=== PATIENT | male | born 1965 | race Caucasian/White ===

== ENCOUNTER 2016-12-20 09:50 | Emergency (ER) | payer OTHER, MEDICAID ==
[~2016-12-20] VITALS: Ht 180.3 cm; Wt 96.3 kg
[~2016-12-20 09:50] MED LIST: 1-ME1LIQ PO; CLON.1 PO; LANTUSP SQ; LISI-363 PO; NEUR600T PO; NOVOLOGSS SQ; TRAM50TA PO
[2016-12-20 09:57] VITALS: BP_SYST 223; BP_SYST 229; BP_DIAS 128; BP_DIAS 135; PULSE 111; RESP 16; TEMP 98.6; O2SAT 95
[2016-12-20 10:10] VITALS: BP 218/106; PULSE 112; RESP 16; O2SAT 96
[2016-12-20] MEDS ORDERED: NOVOLOGP2 SQ (10:13)
[2016-12-20] MEDS ORDERED: LANTUS2P SQ (10:13)
[2016-12-20] MEDS ORDERED: LISI-515 PO (10:13)
[2016-12-20] MEDS ORDERED: [UNRECOGNIZED DRUG - OTHER] (10:13)
[2016-12-20] MEDS ORDERED: CLON0.1T PO (10:13)
[2016-12-20] MEDS ORDERED: RESP: ALBUTEROL 2.5 MG/IPRATROPIUM 0.5 MG NEB (SCH) NEB ONE (10:15)
[2016-12-20] MEDS ORDERED: LISINOPRIL 20 MG TAB PO ONE (10:15)
[2016-12-20] MEDS ORDERED: RESP: LIDOCAINE HCL 4% PF 5 ML NEB NEB ONE (10:15)
[2016-12-20] MEDS ORDERED: cloNIDine HCL 0.1 MG TAB PO ONE (10:15)
--- NOTE | 2016-12-20 10:27 | PD ---
HPI Chief Complaint: Cold / Flu Symptoms Time Seen by Provider: 10:09 Travel History International Travel<30 days: No Contact w/Intl Traveler<30days: No Traveled to known affect area: No History of Present Illness HPI The patient is a 51-year-old male who presents emergency department for cough and cold symptoms for one week duration. The patient states he had a friend over approximately one week ago who is coughing, the patient woke up the next day with body aches, congestion, and sore throat. The patient states his symptoms started improve, however, he now has a persistent cough producing white sputum. He also complains of facial congestion. The patient states his body aches did improve. He denies any actual fever, does have a history of tobacco use, last cigarette just prior to arrival. The patient also has a history of hypertension and diabetes, states his blood sugars have been running slightly high recently and he has appointment next month with his primary physician, Dr. Britton. The patient does note his blood pressure is elevated, he did not take his lisinopril 20 mg or clonidine 0.1 mg this morning. He denies any current headache, chest pain, or shortness of breath. PFSH Past Medical History Hx Anticoagulant Therapy: Yes (81 MG ASA) Blood Disorders: No Heart Rhythm Problems: No Cancer: No Cardiovascular Problems: Yes (HTN; 3 STENTS) High Cholesterol: Yes Chest Pain: No Congestive Heart Failure: No Diabetes: Yes (TYPE 2) Patient Takes Glucophage: No Diminished Hearing: No Endocrine: Yes Gastrointestinal Disorders: Yes (GERD) GERD: Yes (occasional) Genitourinary: No Hepatitis: No Hiatal Hernia: No Hypertension: Yes Immune Disorder: No Implanted Vascular Access Dvce: No Musculoskeletal: No Neurologic: No Psychiatric: No Reproductive: No Respiratory: No Immunizations Current: Yes Myocardial Infarction: No Sleep Apnea: No Thyroid Disease: No Ulcer: No Tetanus Vaccination: < 5 Years Past Surgical History Abdominal Surgery: Yes (gallstones removed) AICD: No Arteriovenous Shunt: No Cardiac Surgery: No Cholecystectomy: Yes Ear Surgery: No Endocrine Surgery: No Eye Surgery: Yes (laser surgery) Genitourinary Surgery: No Gynecologic Surgery: No Insulin Pump: No Joint Replacement: No Neurologic Surgery: No Oral Surgery: No Pacemaker: No Thoracic Surgery: No Other Surgery: Yes (right sfa endarterectomy with bovine patch) Social History Alcohol Use: Yes (LIQUOR DAILY) Tobacco Use: Yes (/2 PPD) Substance Use: Yes (kentrell) Allergies-Medications (Allergen,Severity, Reaction): Coded Allergies: No Known Allergies (Verified , 12/20/16) Reported Meds & Prescriptions Reported Meds & Active Scripts Active Reported Lisinopril 20 Mg Tab 20 Mg PO DAILY Novolog Inj (Insulin Aspart) 1,000 Unit/10 Ml Vial 0 SQ DIRECTED Sliding Scale as directed. [Methyl Pyrrolidone] Clonidine (Clonidine HCl) 0.1 Mg Tab 0.1 Mg PO BID Lantus Inj (Insulin Glargine) 1,000 Unit/10 Ml Vial 21 Units SQ HS Review of Systems Except as stated in HPI: all other systems reviewed are Neg General / Constitutional: No: Fever HENT: Positive: Lightheadedness, Congestion, Earache, No: Vertigo, Neck Pain Cardiovascular: No: Chest Pain or Discomfort Respiratory: Positive: Cough, Wheezing, No: Shortness of Breath Gastrointestinal: No: Nausea, Vomiting, Abdominal Pain Musculoskeletal: Positive: Myalgias (myalgias have currently resolved) Neurologic: No: Dizziness Physical Exam Narrative GENERAL: Awake, alert, pleasant 51-year-old male who appears his stated age and is in no acute respiratory distress. SKIN: Warm and dry. HEAD: Atraumatic. Normocephalic. EYES: Pupils are equal round reactive, 3 mm, EOMs are intact. ENT: No nasal bleeding or discharge. Oropharynx reveals erythema without exudate. TMs are dull bilaterally with positive air-fluid levels. NECK: Trachea midline. No JVD. CARDIOVASCULAR: Regular, tachycardic with a heart rate of 105. RESPIRATORY: No accessory muscle use. Clear to auscultation. Breath sounds equal bilaterally. MUSCULOSKELETAL: No obvious deformities. No clubbing. No cyanosis. No edema. NEUROLOGICAL: Awake and alert. No obvious cranial nerve deficits. Motor grossly within normal limits. Normal speech. PSYCHIATRIC: Appropriate mood and affect; insight and judgment normal. Data Data Last Documented VS Vital Signs Date Time Temp Pulse Resp B/P Pulse Ox O2 Delivery O2 Flow Rate FiO2 12/20/16 12:19 98 16 174/88 94 Room Air 12/20/16 09:57 98.6 Orders Clonidine (Catapres) (12/20/16 10:15) Lisinopril (Prinivil) (12/20/16 10:15) Albuterol-Ipratropium Neb (Duoneb Neb) (12/20/16 10:15) Lidocaine Pf 4% Neb (Lidocaine Pf 4% Neb (12/20/16 10:15) Chest, Single Ap (12/20/16 ) Basic Metabolic Panel (Bmp) (12/20/16 11:32) Creatine Kinase (Cpk) (12/20/16 11:32) Labetalol Inj (Trandate Inj) (12/20/16 11:45) Electrocardiogram (12/20/16 ) Sodium Chlor 0.9% 1000 Ml Inj (Ns 1000 M (12/20/16 12:15) Insulin Human Regular Inj (Novolin R Inj (12/20/16 12:15) Insulin Aspart Inj (Novolog Inj) (12/20/16 12:15) Labs Laboratory Tests Test 12/20/16 11:35 Sodium Level 138 MEQ/L Potassium Level 4.7 MEQ/L Chloride Level 102 MEQ/L Carbon Dioxide Level 27.3 MEQ/L Anion Gap 9 MEQ/L Blood Urea Nitrogen 24 MG/DL Creatinine 1.30 MG/DL Estimat Glomerular Filtration 58 ML/MIN Rate Random Glucose 469 MG/DL Calcium Level 9.2 MG/DL Total Creatine Kinase 86 U/L MDM Medical Decision Making Medical Screen Exam Complete: Yes Emergency Medical Condition: Yes Medical Record Reviewed: Yes Interpretation(s) EKG reveals sinus tachycardia with a heart rate of 106. Inverted T waves noted in lead 3. Chest x-ray reveals no acute croup ulnar findings. Laboratory Tests Test 12/20/16 11:35 Sodium Level 138 MEQ/L Potassium Level 4.7 MEQ/L Chloride Level 102 MEQ/L Carbon Dioxide Level 27.3 MEQ/L Anion Gap 9 MEQ/L Blood Urea Nitrogen 24 MG/DL Creatinine 1.30 MG/DL Estimat Glomerular Filtration 58 ML/MIN Rate Random Glucose 469 MG/DL Calcium Level 9.2 MG/DL Total Creatine Kinase 86 U/L Differential Diagnosis Differential diagnosis includes serous otitis, otitis media, URI, bronchitis, viral syndrome, influenza, hypertensive urgency, hypertensive emergency, noncompliance. Narrative Course The patient was administered his morning dose of medications, lisinopril 20 mg and clonidine 0.1 mg orally. Patient was also administered duo nebs 2 with respiratory lidocaine. The patient's oxygen saturation continued to be 93-96% on room air. However, the patient's blood pressure continued be elevated significantly with systolic in the 200s and diastolic in the 100s. The patient states his blood pressure is normally elevated when he is sick and he has been taking [id number] cough and cold medications such as TheraFlu. Therefore , chest x-ray was obtained, BMP and CPK were sent to lab, EKG was ordered and interpreted. The patient was administered labetalol 20 mg intravenously. The patient's laboratory evaluation is unremarkable except for a glucose of 469. Therefore, patient was administered 6 units insulin regular intravenously and 8 units of aspart subcutaneously. Patient's blood pressure did improve. Patient will be discharged once his blood sugars are less than 300. The patient will be prescribed Zithromax and albuterol inhaler for his bronchitis, however, no steroid's will be prescribed as patient is already hyperglycemic. The patient is advised to follow-up with his primary physician and return if symptoms worsen or progress. Diagnosis Primary Impression: Bronchitis Additional Impression: Hyperglycemia Patient Instructions: General Instructions Additional Instructions: Medications as directed. Follow-up with your primary physician. Return if symptoms worsen or progress. Monitor blood sugars. Med/Other Pt SpecificInfo: Prescription(s) given Scripts Albuterol 18 GM Inh (Ventolin Hfa 18 GM Inh)90 Mcg/Act Aer2 Puff INH Q4H PRN ( SHORTNESS OF BREATH) #1 INHALER Ref 0 Prov:Johny Delgado MD 12/20/16 Azithromycin (Zithromax Z-Anselmo)250 Mg [id number] Mg PO DIRECTED #1 DSPK Ref 0 500 MG (2 tabs) day 1, then 1 tab days 2-5. Prov:Johny Delgado MD 12/20/16 Disposition: 01 DISCHARGE HOME Condition: Stable Johny Delgado MD Dec 20, 2016 10:27
[2016-12-20 11:21] VITALS: BP_SYST 226; BP_SYST 246; BP_DIAS 100; BP_DIAS 114; PULSE 112; RESP 16; O2SAT 92
[2016-12-20] MEDS ORDERED: LABETALOL HCL 100 MG/20 ML VIAL IV PUSH ONE (11:45)
[2016-12-20 11:52] LABS: POTASSIUM 4.7 MEQ/L (3.5-5.1)
[2016-12-20 11:56] LABS: BICARBONATE 27.3 MEQ/L (21.0-32.0)
--- NOTE | 2016-12-20 12:14 | RADHPO ---
EXAM DATE/TIME: 12/20/2016 11:42 [facility] COMPARISON: CHEST SINGLE AP, August 14, 2014, 10:13. INDICATIONS : Coughing, congestion, short of breath, smoker, no heart or lung surgery MEDICAL HISTORY : Diabetes mellitus type II. SURGICAL HISTORY : lower extremity vascular surgery ENCOUNTER: Initial ACUITY: 4 - 6 days PAIN SCORE: 0/10 LOCATION: Bilateral chest FINDINGS: The heart is normal in size. There are chronic interstitial changes within the pulmonary parenchyma. The lungs are otherwise clear. The visualized bony structures are grossly intact. CONCLUSION: 1. No acute cardiopulmonary findings. Malik Garcia MD on December 20, 2016 at 12:12 Board Certified Radiologist. This report was verified electronically.
[2016-12-20] MEDS ORDERED: SODIUM CHLOR 0.9% 1000 ML INJ 1,000 ML IV ONE (12:15)
[2016-12-20] MEDS ORDERED: INSULIN HUMAN REGULAR 1,000 UNITS/10 ML VIAL IV PUSH ONE ×2 (12:15→14:30)
[2016-12-20] MEDS ORDERED: INSULIN ASPART 1,000 UNITS/10 ML VIAL SQ ONE (12:15)
[2016-12-20 12:19] VITALS: BP 174/88; PULSE 98; RESP 16; O2SAT 94
[2016-12-20] MEDS ORDERED: ZITHTAB PO (12:23)
[2016-12-20] MEDS ORDERED: VENTAER INH (12:23)
[2016-12-20 13:51] VITALS: BP 153/90; PULSE 99; RESP 20; O2SAT 94
[2016-12-20 15:07] VITALS: BP 152/88
--- NOTE | 2016-12-21 13:35 | EKG ---
Date Performed: 12/20/2016 Time Performed: 11:40:44 PTAGE: 51 years EKG: Sinus tachycardia Inferior T wave changes are nonspecific Consider possible WPW Short CO in terval with delta waves noted was predominantly in V2. ST changes are also noted compared to prior tr acing with new Q waves in leads V1 and V2. Clinical correlation strongly recommended. Borderline ECG PREVIOUS TRACING : 08/14/2014 12.57 DOCTOR: Maxwell Zambrano Interpretating Date/Time 12/21/2016 13:35:15
== END 2016-12-20 15:15 | disposition home or self-care (01) ==
LOC: PHED 09:50
DX: J40 Bronchitis, not specified as acute or chronic (principal); R00.0 Tachycardia, unspecified; E11.65 Type 2 diabetes mellitus with hyperglycemia; I10 Essential (primary) hypertension; E78.00 Pure hypercholesterolemia, unspecified; F10.20 Alcohol dependence, uncomplicated; Z79.4 Long term (current) use of insulin
CPT/HCPCS: 71010; 80048; 82550; 93005; 94664; 96361; 96372; 96374; 96375; 96376; 99284; J1815; J7030